=== PATIENT | male | born 1990 | race African-American/Black ===

== ENCOUNTER 2020-11-08 21:08 | Emergency (ER) | payer OTHER ==
[~2020-11-08] VITALS: Ht 167.6 cm; Wt 71.0 kg
[2020-11-08 21:19] VITALS: BP 146/96
[2020-11-08] MEDS ORDERED: ACETAMINOPHEN 325MG TABLET PO ONE (22:45)
== END 2020-11-08 23:15 ==
LOC: ER 22:01
DX: R20.0 Anesthesia of skin (principal); Z02.89 Encounter for other administrative examinations; E11.9 Type 2 diabetes mellitus without complications
CPT/HCPCS: 99283